=== PATIENT | male | born 1955 | race African-American/Black ===

== ENCOUNTER 2020-07-18 12:17 | Emergency (ER) | payer OTHER, SELFPAY ==
[~2020-07-18] VITALS: Ht 172.7 cm; Wt 121.1 kg
[2020-07-18 12:20] VITALS: Ht 172.7 cm; Wt 121.1 kg
[2020-07-18 14:56] VITALS: BP 154/96
== END 2020-07-18 14:56 | disposition home or self-care (01) ==
LOC: ED 12:17
DX: U07.1 COVID-19 (principal); E11.22 Type 2 diabetes mellitus with diabetic chronic kidney disease; I12.9 Hypertensive chronic kidney disease with stage 1 through stage 4 chronic kidney disease, or unspecified chronic kidney disease; N18.9 Chronic kidney disease, unspecified; M19.90 Unspecified osteoarthritis, unspecified site; E78.00 Pure hypercholesterolemia, unspecified; Z86.73 Personal history of transient ischemic attack (TIA), and cerebral infarction without residual deficits
CPT/HCPCS: U0003

== ENCOUNTER 2020-07-31 15:25 | Inpatient (IN) | payer OTHER, SELFPAY ==
[~2020-07-31] VITALS: Ht 172.7 cm; Wt 124.7 kg
[2020-07-31 15:26] VITALS: Ht 172.7 cm; Wt 124.7 kg
[2020-07-31 17:24] LABS: BASOPHIL % 0.3 % (0.2-1.5); PLATELET COUNT 215 x10^3mcL (152-348)
[2020-07-31 17:28] LABS: RED CELL DISTRIBUTION WIDTH 18.1 % (12.1-16.2)
[2020-07-31 17:32] LABS: CALCIUM 8.9 mg/dL (8.5-10.1); CARBON DIOXIDE 28.6 mmol/L (21-32); CREATININE SERUM 1.8 mg/dL (0.7-1.3); POTASSIUM SERUM 5.3 mmol/L (3.5-5.1)
[2020-07-31 17:37] LABS: microscopic required? YES; urine erythrocyte 2+ (NEGATIVE)
[2020-07-31 17:43] LABS: ALBUMIN 2.6 g/dL (3.4-5.0); BILIRUBIN TOTAL 0.54 mg/dL (0.20-1.00); TOTAL PROTEIN, SERUM 7.2 g/dL (6.4-8.2)
[2020-07-31 18:03] LABS: C REACTIVE PROTEIN 19.1 mg/dL (<=0.9)
[2020-07-31 18:15] LABS: rbc morphology (normal/abnorm) ABNORMAL (NORMAL)
[2020-07-31 21:51] LABS: T3 TOTAL 1.07 ng/mL
[2020-07-31 22:17] LABS: CHOLESTEROL/HDL RATIO 3.8
[2020-07-31] MEDS ORDERED: LEVOTHYROXIN0.025 M2 PO (22:53)
[2020-07-31] MEDS ORDERED: METFORMIN500 M1 (22:54)
[2020-07-31] MEDS ORDERED: JANUVIA100 M1 PO (22:54)
[2020-07-31] MEDS ORDERED: ATORVASTATIN CA80 M1 PO (22:54)
[2020-07-31] MEDS ORDERED: CARVEDILOL3.125 M1 PO (22:55)
[2020-07-31] MEDS ORDERED: ASPIRIN ADULT L81 M3 PO (22:55)
[2020-07-31 23:03] LABS: FREE T4 1.39 ng/dL (0.76-1.46); FREE THYROXINE INDEX 3.1 ug/dL (1.4-4.5); T4(THYROXINE) 9.3 ug/dL (4.7-13.3)
[2020-08-01 10:10] LABS: BASOPHIL % 0.3 % (0.2-1.5); PLATELET COUNT 247 x10^3mcL (152-348)
[2020-08-01 10:13] LABS: RED CELL DISTRIBUTION WIDTH 18.5 % (12.1-16.2)
[2020-08-01 10:20] LABS: CALCIUM 8.9 mg/dL (8.5-10.1); CARBON DIOXIDE 29.4 mmol/L (21-32); CREATININE SERUM 1.7 mg/dL (0.7-1.3)
[2020-08-01 10:58] LABS: rbc morphology (normal/abnorm) NORMAL (NORMAL)
[2020-08-01 12:58] VITALS: BP 157/71
[2020-08-01 14:08] VITALS: BP 15/71
[2020-08-01 16:57] VITALS: BP 144/90
[2020-08-01 21:09] VITALS: BP 148/78
[2020-08-02 04:50] VITALS: BP 134/77
[2020-08-02 08:34] LABS: BASOPHIL % 0.4 % (0.2-1.5); PLATELET COUNT 275 x10^3mcL (152-348)
[2020-08-02 09:08] VITALS: BP 114/69
[2020-08-02 09:16] LABS: CALCIUM 8.8 mg/dL (8.5-10.1); CARBON DIOXIDE 28.8 mmol/L (21-32); CREATININE SERUM 1.5 mg/dL (0.7-1.3)
[2020-08-02 09:25] LABS: RED CELL DISTRIBUTION WIDTH 18.3 % (12.1-16.2)
[2020-08-02 12:15] VITALS: BP 141/76
[2020-08-02] MEDS ORDERED: LASIX20 MG PO (12:59)
[2020-08-02] MEDS ORDERED: VENTOLIN H0.09 MG/A1 INH (12:59)
[2020-08-02] MEDS ORDERED: KLOR-CON M1010 MEQ PO (13:00)
[2020-08-02] MEDS ORDERED: ROBDML PO (13:02)
[2020-08-02] MEDS ORDERED: DECADRON6 MG PO (13:03)
[2020-08-02] MEDS ORDERED: VITC PO (13:04)
[2020-08-02] MEDS ORDERED: ZINC SULFATE220 MG PO (13:04)
[2020-08-02] MEDS ORDERED: D-10001 TAB PO (13:05)
[2020-08-02] MEDS ORDERED: MUCINEX600 MG PO (13:07)
[2020-08-02 17:23] VITALS: BP 152/93
[2020-08-02 20:14] VITALS: BP 137/74
[2020-08-03 05:42] VITALS: BP 108/58
[2020-08-03 08:24] VITALS: BP 130/73
[2020-08-03 11:50] VITALS: BP 128/83
[2020-08-03 12:25] LABS: CALCIUM 9.7 mg/dL (8.5-10.1); CREATININE SERUM 1.5 mg/dL (0.7-1.3); POTASSIUM SERUM 4.6 mmol/L (3.5-5.1)
[2020-08-03 12:31] LABS: BASOPHIL % 0.7 % (0.2-1.5)
[2020-08-03 13:39] LABS: PLATELET COUNT 416 x10^3mcL (152-348); RED CELL DISTRIBUTION WIDTH 18.1 % (12.1-16.2)
[2020-08-03 15:56] VITALS: BP 138/75
[2020-08-03 18:05] LABS: rbc morphology (normal/abnorm) NORMAL (NORMAL)
[2020-08-03 21:00] VITALS: BP 130/79
[2020-08-04 05:58] VITALS: BP 137/75
[2020-08-04 07:30] LABS: CALCIUM 9.5 mg/dL (8.5-10.1); CARBON DIOXIDE 33.3 mmol/L (21-32); CREATININE SERUM 1.5 mg/dL (0.7-1.3); POTASSIUM SERUM 4.9 mmol/L (3.5-5.1)
[2020-08-04 08:22] VITALS: BP 141/87
[2020-08-04 08:26] LABS: BASOPHIL % 0.6 % (0.2-1.5)
[2020-08-04 10:55] LABS: PLATELET COUNT 466 x10^3mcL (152-348); RED CELL DISTRIBUTION WIDTH 18.3 % (12.1-16.2)
[2020-08-04 11:33] VITALS: BP 134/77
[2020-08-04 16:34] VITALS: BP 130/75
[2020-08-04 20:35] VITALS: BP 148/71
[2020-08-05 05:58] VITALS: BP 134/78
[2020-08-05 08:01] LABS: BASOPHIL % 0.2 % (0.2-1.5)
[2020-08-05 08:11] LABS: PLATELET COUNT 423 x10^3mcL (152-348); RED CELL DISTRIBUTION WIDTH 18.5 % (12.1-16.2)
[2020-08-05 08:26] LABS: rbc morphology (normal/abnorm) NORMAL (NORMAL)
[2020-08-05 08:46] LABS: CALCIUM 9.1 mg/dL (8.5-10.1); CARBON DIOXIDE 33.4 mmol/L (21-32); CREATININE SERUM 1.4 mg/dL (0.7-1.3); POTASSIUM SERUM 4.1 mmol/L (3.5-5.1)
[2020-08-05 09:36] VITALS: BP 128/74
[2020-08-05 13:15] VITALS: BP 127/73
[2020-08-05 17:37] VITALS: BP 140/84
[2020-08-05 21:54] VITALS: BP 139/87
[2020-08-06 06:15] VITALS: BP 119/74
[2020-08-06 08:54] VITALS: BP 137/76
[2020-08-06 12:14] VITALS: BP 109/67
[2020-08-06 17:12] VITALS: BP 150/75
[2020-08-06 20:57] VITALS: BP 117/62
[2020-08-07 06:11] VITALS: BP 114/63
[2020-08-07 08:33] VITALS: BP 137/82
[2020-08-07 12:17] VITALS: BP 118/77
[2020-08-07 13:36] VITALS: BP 118/77
== END 2020-08-07 14:32 | disposition home or self-care (01) | DRG 871 ==
LOC: ED 15:25 → DU 19:31
PROVIDERS: Specialist; ADMIT Internal Medicine; ATTEND Internal Medicine
DX: A41.9 Sepsis, unspecified organism (principal); U07.1 COVID-19; J96.01 Acute respiratory failure with hypoxia; N17.0 Acute kidney failure with tubular necrosis; J12.82 Pneumonia due to coronavirus disease 2019; I13.0 Hypertensive heart and chronic kidney disease with heart failure and stage 1 through stage 4 chronic kidney disease, or unspecified chronic kidney disease; N18.9 Chronic kidney disease, unspecified; Z88.0 Allergy status to penicillin; E11.22 Type 2 diabetes mellitus with diabetic chronic kidney disease; E78.00 Pure hypercholesterolemia, unspecified; I25.2 Old myocardial infarction; E87.5 Hyperkalemia; I50.9 Heart failure, unspecified; E11.65 Type 2 diabetes mellitus with hyperglycemia; E03.9 Hypothyroidism, unspecified
CPT/HCPCS: 36600; 82962; 83880; 84439; 85378; 87804; G0378; J0456; J1100; J1644; J1815; J1940; J3535; U0003